=== PATIENT | male | born 1960 | race Two or more races ===

== ENCOUNTER 2024-08-23 22:08 | Inpatient (IN) | payer OTHER ==
[~2024-08-23] VITALS: Ht 172.7 cm; Wt 107.7 kg
[2024-08-23] MEDS ORDERED: ASPIRIN 325MG TABLET PO ONE (22:15)
[2024-08-23] MEDS: NITROGLYCERIN OINT 1GM/INCH UDPKT TD ONE (22:26)
[2024-08-23] MEDS: MORPHINE SULFATE 4 MG/ML INJ (FOR IV/IM USE) IV ONE (22:26)
[2024-08-23] MEDS: ONDANSETRON HCL 4MG/2ML INJ IV ONE (22:27)
[2024-08-23] MEDS ORDERED: LIDOCAINE HCL 1% 20ML VIAL ONE (22:30)
[2024-08-23] MEDS ORDERED: HEPARIN 1000 UNITS/ML 10ML ONE ×2 (22:30→23:20)
[2024-08-23] MEDS ORDERED: HEPARIN 1,000 UNITS PREMIX 1,500 ML IV ONE (22:30)
[2024-08-23] MEDS ORDERED: IODIXANOL 320MG/ML 100 ML BOTTLE IV ONE ×3 (22:30→23:20)
[2024-08-23] MEDS: HEPARIN 5000 UNITS/ML VIAL IV ONE (22:33)
[2024-08-23] MEDS ORDERED: FENTANYL CITRATE/PF 50MCG/ML 2ML VIAL ONE ×2 (22:38→23:03)
[2024-08-23] MEDS ORDERED: MIDAZOLAM HCL 2 MG/2 ML VIAL ONE ×2 (22:39→23:03)
[2024-08-23 22:42] LABS: CHLORIDE 104 mEq/L (98-107); INR 0.9; POTASSIUM 3.8 mEq/L (3.5-5.1); PROTHROMBIN TIME 9.7 sec (9.6-11.0); SODIUM 139 mEq/L (136-145)
[2024-08-23 22:43] LABS: CALCIUM 9.2 mg/dL (8.7-10.4); CARBON DIOXIDE 27 mEq/L (21-32)
[2024-08-23 22:45] LABS: BASOPHILS % 0.5 % (0.0-2.0); EOSINOPHILS % 0.8 % (0.0-5.0); HEMATOCRIT. 45.4 % (42.0-52.0); HEMOGLOBIN. 15.3 g/dL (14.0-18.0); MEAN CORPUSCULAR HEMOGLOBIN 29.2 pg (28.0-32.0); MEAN CORPUSCULAR HGB CONC 33.7 g/dL (31.0-37.0); MEAN CORPUSCULAR VOLUME 86.8 fL (80.0-94.0); MEAN PLATELET VOLUME 7.2 fl (7.4-10.4); MONOCYTES % 6.3 % (2.0-8.0); NEUTROPHILS % 80.4 % (40.0-76.0); PLATELET 385 x1000/uL (130-400); RED BLOOD CELL COUNT 5.23 mill/uL (4.7-6.1); RED CELL DISTRIBUTION WIDTH 13.2 % (11.6-14.6); WHITE BLOOD COUNT 10.2 x1000/uL (4.5-11.0)
[2024-08-23 22:48] LABS: CREATININE 1.3 mg/dL (0.6-1.3); GLUCOSE 156 mg/dL (70-105); UREA NITROGEN BLOOD 17 mg/dL (9-23)
[2024-08-23] MEDS ORDERED: METOCLOPRAMIDE HCL 10MG/2ML VIAL ONE (22:54)
[2024-08-23] MEDS ORDERED: DIPHENHYDRAMINE 50MG/ML VIAL ONE (22:55)
[2024-08-23 23:29] LABS: TROPONIN I HIGH SENSITIVITY 131 ng/L (3.0-53)
[2024-08-23] MEDS ORDERED: TICAGRELOR 90 MG TABLET PO ONE (23:41)
[2024-08-24] VITALS (37 sets, daily range): BP systolic 102–168; BP diastolic 70–106; PULSE 76–111; RESP 11–23; TEMP 36.6696–37.0852; O2SAT 91–99
[2024-08-24] MEDS: HEPARIN 5000 UNITS/ML VIAL SUBCUT SCH (01:28)
[2024-08-24] MEDS: LISINOPRIL 5MG TABLET PO NR (01:28)
[2024-08-24] MEDS: TICAGRELOR 90 MG TABLET PO NR (01:28)
[2024-08-24] MEDS ORDERED: IPRATROPIUM/ALBUTEROL 0.5-3(2.5)MG/3ML NEB HHN PRN ×2 (02:15→04:00)
[2024-08-24] MEDS ORDERED: ACETAMINOPHEN 325MG TABLET PO PRN ×2 (02:15)
[2024-08-24] MEDS ORDERED: ONDANSETRON HCL 4MG/2ML INJ IV PRN (02:15)
[2024-08-24] MEDS ORDERED: DEXTROSE 50% WATER 50ML SYRINGE IV PRN (04:15)
[2024-08-24 06:37] LABS: CARBON DIOXIDE 24 mEq/L (21-32); CHLORIDE 108 mEq/L (98-107); POTASSIUM 3.8 mEq/L (3.5-5.1); SODIUM 139 mEq/L (136-145)
[2024-08-24 06:38] LABS: CALCIUM 8.4 mg/dL (8.7-10.4)
[2024-08-24 06:42] LABS: UREA NITROGEN BLOOD 16 mg/dL (9-23)
[2024-08-24 06:43] LABS: GLUCOSE 121 mg/dL (70-105); TRIGLYCERIDE 155 mg/dL (0-150)
[2024-08-24 06:44] LABS: ALANINE AMINOTRANSFERASE 131 IU/L (10-49); ALBUMIN 3.3 g/dL (3.2-4.8); ASPARTATE AMINOTRANSFERASE 660 IU/L (<34); LDL CHOLESTEROL 148 mg/dL (5-100)
[2024-08-24 06:45] LABS: BILIRUBIN TOTAL 0.9 mg/dL (0.1-1.0); CHOLESTEROL 205 mg/dL (<200); HDL CHOLESTEROL 49 mg/dL (>55); PROTEIN TOTAL 5.5 g/dL (6.0-8.3)
[2024-08-24 07:20] LABS: HEMATOCRIT 40.1 % (42.0-52.0); HEMOGLOBIN 13.6 g/dL (14.0-18.0); MEAN CORPUSCULAR HEMOGLOBIN 29.6 pg (28.0-32.0); MEAN CORPUSCULAR VOLUME 87.2 fL (80.0-94.0); PLATELET 344 x1000/uL (130-400); RED CELL DISTRIBUTION WIDTH 13.5 % (11.6-14.6); WHITE BLOOD COUNT 10.3 x1000/uL (4.5-11.0)
[2024-08-24 08:03] LABS: TROPONIN I HIGH SENSITIVITY > 125000 ng/L (3.0-53)
[2024-08-24] MEDS: INSULIN LISPRO 100 UNITS/ML SUBCUT SCH (08:20)
[2024-08-24] MEDS: FUROSEMIDE 40MG/4 ML UDC PO SCH (08:22)
[2024-08-24] MEDS: BLOOD SUGAR DIAGNOSTIC STRIP TEST SCH (08:22)
[2024-08-24] MEDS: PANTOPRAZOLE SODIUM 40 MG/VIAL IV SCH (08:23)
[2024-08-24] MEDS: TICAGRELOR 90 MG TABLET PO SCH (08:23)
[2024-08-24] MEDS: ASPIRIN 81MG TABLET PO SCH (08:23)
[2024-08-24] MEDS: CARVEDILOL 3.125 MG TABLET PO SCH (08:24)
[2024-08-24] MEDS: LISINOPRIL 5MG TABLET PO SCH (08:25)
[2024-08-24 11:40] LABS: ALANINE AMINOTRANSFERASE 140 IU/L (10-49); ALBUMIN 3.1 g/dL (3.2-4.8); ASPARTATE AMINOTRANSFERASE 692 IU/L (<34); BILIRUBIN DIRECT 0.2 mg/dL (<=3.0); BILIRUBIN TOTAL 0.8 mg/dL (0.1-1.0); PROTEIN TOTAL 5.2 g/dL (6.0-8.3)
[2024-08-24 11:43] LABS: T4 FREE 1.12 ng/dL (0.89-1.76); THYROID STIMULATING HORMONE 0.66 uIU/mL (0.55-4.78)
[2024-08-24 11:51] LABS: CREATINE KINASE 4987 IU/L (46-171)
[2024-08-24] MEDS: FUROSEMIDE 40MG TABLET PO SCH (17:43)
[2024-08-24 18:39] LABS: TROPONIN I HIGH SENSITIVITY > 125000 ng/L (3.0-53)
[2024-08-24] MEDS: ATORVASTATIN CALCIUM 40MG TABLET PO SCH (21:52)
[2024-08-24 23:25] LABS: TROPONIN I HIGH SENSITIVITY > 125000 ng/L (3.0-53)
[2024-08-25] VITALS: BP 117/79; PULSE 92; RESP 20; TEMP 37.00296; O2SAT 99
[2024-08-25 04:00] VITALS: BP 128/87; PULSE 88; RESP 20; TEMP 36.55848; O2SAT 98
[2024-08-25 07:48] LABS: CARBON DIOXIDE 25 mEq/L (21-32); CHLORIDE 107 mEq/L (98-107); POTASSIUM 3.8 mEq/L (3.5-5.1); SODIUM 140 mEq/L (136-145)
[2024-08-25 07:49] LABS: CALCIUM 8.3 mg/dL (8.7-10.4); HEMATOCRIT 38.9 % (42.0-52.0); HEMOGLOBIN 13.3 g/dL (14.0-18.0); MEAN CORPUSCULAR HEMOGLOBIN 29.8 pg (28.0-32.0); MEAN CORPUSCULAR HGB CONC 34.2 g/dL (31.0-37.0); MEAN CORPUSCULAR VOLUME 87.2 fL (80.0-94.0); PLATELET 298 x1000/uL (130-400); RED BLOOD CELL COUNT 4.46 mill/uL (4.7-6.1); WHITE BLOOD COUNT 8.3 x1000/uL (4.5-11.0)
[2024-08-25 07:54] LABS: CREATININE 1.1 mg/dL (0.6-1.3); GLUCOSE 94 mg/dL (70-105); UREA NITROGEN BLOOD 15 mg/dL (9-23)
[2024-08-25 07:56] LABS: PHOSPHORUS 2.7 mg/dL (2.5-4.9)
[2024-08-25 08:00] VITALS: BP 127/78; PULSE 84; RESP 21; TEMP 37.00296; O2SAT 96
[2024-08-25 08:22] LABS: TROPONIN I HIGH SENSITIVITY 124100 ng/L (3.0-53)
[2024-08-25 12:00] VITALS: BP 103/79; PULSE 94; RESP 18; TEMP 36.72516; O2SAT 96
[2024-08-25 16:00] VITALS: BP 106/75; PULSE 82; RESP 20; TEMP 36.6696; O2SAT 97
[2024-08-25] MEDS: POLYETHYLENE GLYCOL 3350 (17GM) 1 DOSE PACK PO SCH (17:37)
[2024-08-25 20:00] VITALS: BP 131/85; PULSE 93; RESP 19; TEMP 37.00296; O2SAT 98
[2024-08-26] VITALS (7 sets, daily range): BP systolic 106–129; BP diastolic 63–87; PULSE 76–99; RESP 14–23; TEMP 36.114–36.9474; O2SAT 11–100
[2024-08-26 09:10] LABS: CHLORIDE 107 mEq/L (98-107); POTASSIUM 3.9 mEq/L (3.5-5.1); SODIUM 138 mEq/L (136-145)
[2024-08-26 09:13] LABS: CARBON DIOXIDE 24 mEq/L (21-32)
[2024-08-26 09:14] LABS: CALCIUM 8.4 mg/dL (8.7-10.4)
[2024-08-26 09:18] LABS: ALANINE AMINOTRANSFERASE 75 IU/L (10-49); CREATININE 1.1 mg/dL (0.6-1.3); GLUCOSE 99 mg/dL (70-105)
[2024-08-26 09:19] LABS: UREA NITROGEN BLOOD 15 mg/dL (9-23)
[2024-08-26 09:20] LABS: ALBUMIN 3.3 g/dL (3.2-4.8); ASPARTATE AMINOTRANSFERASE 137 IU/L (<34)
[2024-08-26 09:21] LABS: BILIRUBIN TOTAL 1.4 mg/dL (0.1-1.0); PROTEIN TOTAL 5.7 g/dL (6.0-8.3)
[2024-08-26 09:33] LABS: HEMATOCRIT 40.3 % (42.0-52.0); HEMOGLOBIN 13.6 g/dL (14.0-18.0); MEAN CORPUSCULAR HEMOGLOBIN 29.2 pg (28.0-32.0); MEAN CORPUSCULAR HGB CONC 33.7 g/dL (31.0-37.0); MEAN CORPUSCULAR VOLUME 86.7 fL (80.0-94.0); PLATELET 301 x1000/uL (130-400); RED BLOOD CELL COUNT 4.65 mill/uL (4.7-6.1); RED CELL DISTRIBUTION WIDTH 13.3 % (11.6-14.6); WHITE BLOOD COUNT 8.7 x1000/uL (4.5-11.0)
[2024-08-26] MEDS ORDERED: IODIXANOL 320 MG/ML 150ML BOTTLE IV ONE (14:56)
[2024-08-26] MEDS ORDERED: HEPARIN 1000 UNITS/ML 10ML ONE ×2 (14:57→15:00)
[2024-08-26] MEDS ORDERED: LIDOCAINE HCL 1% 20ML VIAL ONE ×2 (14:57→15:51)
[2024-08-26] MEDS ORDERED: MIDAZOLAM HCL 2 MG/2 ML VIAL ONE ×2 (14:59→15:37)
[2024-08-26] MEDS ORDERED: FENTANYL CITRATE/PF 50MCG/ML 2ML VIAL ONE ×2 (15:00→15:41)
[2024-08-27] VITALS: BP 124/82; PULSE 87; RESP 23; TEMP 36.83628; O2SAT 98
[2024-08-27 04:00] VITALS: BP 121/70; PULSE 88; RESP 19; TEMP 36.78072; O2SAT 96
[2024-08-27 07:39] LABS: HEMATOCRIT 39.7 % (42.0-52.0); HEMOGLOBIN 13.3 g/dL (14.0-18.0); MEAN CORPUSCULAR HEMOGLOBIN 29.1 pg (28.0-32.0); MEAN CORPUSCULAR HGB CONC 33.5 g/dL (31.0-37.0); MEAN CORPUSCULAR VOLUME 86.7 fL (80.0-94.0); PLATELET 310 x1000/uL (130-400); RED BLOOD CELL COUNT 4.58 mill/uL (4.7-6.1); RED CELL DISTRIBUTION WIDTH 12.7 % (11.6-14.6); WHITE BLOOD COUNT 8.2 x1000/uL (4.5-11.0)
[2024-08-27 07:41] LABS: CHLORIDE 105 mEq/L (98-107); POTASSIUM 3.8 mEq/L (3.5-5.1); SODIUM 136 mEq/L (136-145)
[2024-08-27 07:42] LABS: CALCIUM 8.6 mg/dL (8.7-10.4); CARBON DIOXIDE 22 mEq/L (21-32)
[2024-08-27 07:47] LABS: GLUCOSE 83 mg/dL (70-105); UREA NITROGEN BLOOD 19 mg/dL (9-23)
[2024-08-27 08:00] VITALS: BP 110/65; PULSE 83; RESP 20; TEMP 36.6696; O2SAT 98
[2024-08-27] MEDS ORDERED: LIP40 PO (08:24)
[2024-08-27] MEDS ORDERED: POLY17PO43 PO (08:24)
[2024-08-27] MEDS ORDERED: PROT20 MT (08:24)
[2024-08-27] MEDS ORDERED: COR3 PO (08:24)
[2024-08-27] MEDS ORDERED: FURO40TA5 PO (08:24)
[2024-08-27] MEDS ORDERED: ASPI-1497 PO (08:24)
[2024-08-27] MEDS ORDERED: LISI-186 PO (08:24)
[2024-08-27] MEDS ORDERED: NAPR-1486 MT (08:24)
[2024-08-27] MEDS ORDERED: TICA90TA PO (08:24)
[2024-08-27 12:00] VITALS: BP 108/66; PULSE 85; RESP 18; TEMP 36.72516; O2SAT 99
[2024-08-27 16:00] VITALS: BP 110/65; PULSE 87; RESP 19; TEMP 36.72516; O2SAT 98
[2024-08-27 16:46] VITALS: BP 108/66; PULSE 85; TEMP 97.5; O2SAT 99
== END 2024-08-27 17:48 | disposition home or self-care (01) | DRG 321 ==
LOC: ER 22:08 → CVICU 23:10 → EDBEDREQ 23:12 → 3WST 08-24 16:42
PROVIDERS: ADMIT Internal Medicine; ATTEND Internal Medicine
PROC: 4A023N7 Measurement of Cardiac Sampling and Pressure, Left Heart, Percutaneous Approach (ICD-10-PCS; principal; 2024-08-24)
PROC: 027035Z Dilation of Coronary Artery, One Artery with Two Drug-eluting Intraluminal Devices, Percutaneous Approach (ICD-10-PCS; 2024-08-24)
PROC: B211YZZ Fluoroscopy of Multiple Coronary Arteries using Other Contrast (ICD-10-PCS; 2024-08-24)
PROC: B215YZZ Fluoroscopy of Left Heart using Other Contrast (ICD-10-PCS; 2024-08-24)
PROC: B41FYZZ Fluoroscopy of Right Lower Extremity Arteries using Other Contrast (ICD-10-PCS; 2024-08-24)
PROC: 027035Z Dilation of Coronary Artery, One Artery with Two Drug-eluting Intraluminal Devices, Percutaneous Approach (ICD-10-PCS; 2024-08-26)
DX: I21.09 ST elevation (STEMI) myocardial infarction involving other coronary artery of anterior wall (principal); I50.41 Acute combined systolic (congestive) and diastolic (congestive) heart failure; I16.1 Hypertensive emergency; I24.9 Acute ischemic heart disease, unspecified; I11.0 Hypertensive heart disease with heart failure; E78.5 Hyperlipidemia, unspecified; R73.03 Prediabetes; R73.9 Hyperglycemia, unspecified; I27.20 Pulmonary hypertension, unspecified; K70.10 Alcoholic hepatitis without ascites; E66.01 Morbid (severe) obesity due to excess calories; K59.00 Constipation, unspecified; I25.10 Atherosclerotic heart disease of native coronary artery without angina pectoris; Z68.36 Body mass index [BMI] 36.0-36.9, adult; Z82.49 Family history of ischemic heart disease and other diseases of the circulatory system; Z79.02 Long term (current) use of antithrombotics/antiplatelets; Z79.82 Long term (current) use of aspirin; Z79.899 Other long term (current) drug therapy; Z82.3 Family history of stroke
CPT/HCPCS: 36415; 71045; 71046; 76700; 80048; 80053; 80061; 80076; 82550; 82962; 83036; 83735; 83880; 84100; 84439; 84443; 84484; 85025; 85027; 85347; 86850; 86900; 92928; 92941; 93005; 93306; 93454; 93458; 93970; 99291; A4606; C1725; C1769; C1874; C1887; C1893; J1200; J1644; J1940; J2250; J2270; J2405; J2470; J2765; J3010; J3490; Q9967; J8499